=== PATIENT | female | born 1990 | race African-American/Black ===

== ENCOUNTER 2019-05-21 10:39 | Emergency (ER) | payer OTHER, SELFPAY ==
--- NOTE | ~2019-05-21 | XR_ITS ---
EXAMINATION: XR hand RT min 3V EXAM DATE: 05/21/2019 11:10 INDICATION: Initial encounter following injury, with pain of the right hand. TECHNIQUE: Right hand frontal, lateral and oblique projections obtained and reviewed. There is no pr ior study for comparison. FINDINGS: There is suspicion of acute nondisplaced fracture at the proximal aspect of the right fifth metacarpal shaft, slight cortical discontinuity suspected, but please clinically correlate. No other suspicious right hand findings. Phalanges are unremarkable. IMPRESSION: Suspicion of acute nondisplaced right metacarpal shaft fracture, proximally. Reviewed, dictated and finalized at location B. IMPRESSION: Suspicion of acute nondisplaced right metacarpal shaft fracture, p roximally.
[2019-05-21 10:54] VITALS: BP 142/81; PULSE 80; RESP 16; TEMP 36.9; O2SAT 100
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
== END 2019-05-21 11:50 | disposition home or self-care (01) ==
PROVIDERS: Emergency Provider Nurse Practitioner
DX: S62.356A Nondisplaced fracture of shaft of fifth metacarpal bone, right hand, initial encounter for closed fracture (principal); Y04.0XXA Assault by unarmed brawl or fight, initial encounter
CPT/HCPCS: 29125; 73130; 99214; G0463

== ENCOUNTER 2019-08-09 14:16 | Emergency (ER) | payer OTHER, SELFPAY ==
[2019-08-09 14:22] VITALS: BP 120/66; PULSE 72; RESP 20; TEMP 37.2; O2SAT 100
--- NOTE | 2019-08-09 14:45 | PC.NURSE ---
Patient assessed, for C/O heartburn and sensation, feeling like she has something stuck in her chest when she tries eating or drinking or swallowing. Patient stated she had emesis episodes this morning and last night. Denies abdominal pain, nausea, or diarrhea.
--- NOTE | 2019-08-09 15:57 | ED.GENADULT ---
HPI - General Adult General Chief complaint: Unspecified Stated complaint: heartburn Time Seen by Provider: 08/09/19 15:57 Source: patient Mode of arrival: ambulatory Limitations: no limitations History of Present Illness HPI narrative: Landy Blackman is a 28 yo female with no PMH who comes to express care with complaints of indigestion and burning in chest. Just started last night and has improved somewhat but continues to bother her. She is unable to identify precipitating event Related Data Allergies Allergy/AdvReac Type Severity Reaction Status Date / Time bupropion Allergy Rash Verified 08/09/19 15:07 Review of Systems Review of Systems: Narrative: CONSTITUTIONAL: Denies fever, chills, sweats. EYES: Denies visual changes, redness, discharge. ENT: Denies rhinorrhea, congestion, sore throat, otalgia. CARDIOVASCULAR: Denies chest pain, palpitations, edema. RESPIRATORY: Denies dyspnea, wheezing, cough GASTROINTESTINAL: Denies abdominal pain, nausea, vomiting, diarrhea. Has heartburn GENITOURINARY: Denies dysuria, hematuria, abnormal discharge SKIN: Denies rash or itching. NEUROLOGIC: Denies numbness, or focal weakness. PSYCHIATRIC: Denies anxiety or depression. PMFSH Family History Family History Other Hypertension Social History Social History Smoking status: Never smoker Alcohol intake: never Gender identity (if verbalized by the patient): Female Comments At time of signature, I agree with nursing past medical, surgical, social and family history. There is no relevant family history pertinent to the presenting complaint. Exam Narrative: Exam Narrative: GENERAL: This is a well-nourished, well-developed patient, in mild distress. HEAD: normocephalic, atraumatic. EYES: Sclera clear/white. Vision is grossly intact. EARS: External ears normal, . Hearing grossly intact. NOSE: External nose normal without nasal discharge, nares without redness, no rhinorrhea. THROAT: Mucous membranes moist, posterior pharynx mild erythema NECK: Neck supple, CARDIOVASCULAR: Regular rate and rhythm without murmurs, gallops, or rubs. RESPIRATORY: Clear to auscultation. Breath sounds equal bilaterally. No wheezes, rales, or rhonchi. GASTROINTESTINAL: Abdomen soft, SKIN: warm, intact with no suspicious lesions or rash, good texture and turgor. NEURO: awake, alert, and oriented to person, place and time. There were no obvious focal neurologic abnormalities. Steady gait EXTREMITIES: Normal range of motion. BACK: Nontender without deformity Course Course Emergency Course: Pepcid given at [facility] Started on Pepcid 20 mg twice daily for 15-day trial; and worsens patient told to go to ER Follow-up with PCP Vital Signs Vital signs: Vital Signs Temperature 98.9 F 08/09/19 14:22 Pulse Rate 72 08/09/19 14:22 Respiratory Rate 08/09/19 14:22 Blood Pressure 120/66 08/09/19 14:22 Pulse Oximetry 100 08/09/19 14:22 Temperature 98.9 F 08/09/19 14:22 Pulse Rate 72 08/09/19 14:22 Respiratory Rate 08/09/19 14:22 Blood Pressure 120/66 08/09/19 14:22 Pulse Oximetry 100 08/09/19 14:22 Medical Decision Making Differential Diagnosis Differential Diagnosis: Gastritis versus GERD versus nausea Vital Signs Vital Signs: Vital Signs Temperature 98.9 F 08/09/19 14:22 Pulse Rate 72 08/09/19 14:22 Respiratory Rate 08/09/19 14:22 Blood Pressure 120/66 08/09/19 14:22 Pulse Oximetry 100 08/09/19 14:22 Temperature 98.9 F 08/09/19 14:22 Pulse Rate 72 08/09/19 14:22 Respiratory Rate 08/09/19 14:22 Blood Pressure 120/66 08/09/19 14:22 Pulse Oximetry 100 08/09/19 14:22 Discharge Plan Discharge Clinical Impression: GERD (gastroesophageal reflux disease) Qualifiers: Esophagitis presence: esophagitis presence not specified Qualified
[2019-08-09] MEDS: FAMOTIDINE 20 MG TABLET PO (16:09)
== END 2019-08-09 16:37 | disposition home or self-care (01) ==
PROVIDERS: Emergency Provider Nurse Practitioner; PCP Nurse Practitioner Adult Health
DX: K21.9 Gastro-esophageal reflux disease without esophagitis (principal)
CPT/HCPCS: 99213; A9270; G0463

== ENCOUNTER 2019-10-15 18:27 | Emergency (ER) | payer OTHER, SELFPAY ==
[2019-10-15 18:33] VITALS: BP 115/70; PULSE 72; RESP 18; TEMP 36.8; O2SAT 100
--- NOTE | 2019-10-15 18:36 | ED.URI ---
HPI - URI/Sore Throat General Chief Complaint: Ear Stated Complaint: sinus headache and ear pain Time Seen by Provider: 10/15/19 18:36 Source: patient and RN notes reviewed History of Present Illness HPI Narrative: Patient is a 28-year-old female who presents the urgent care with complaints of bilateral ear pressure, sinus headache and nasal congestion. Patient states that she has been taking Claritin for approximately 3 weeks after she started with sneezing. Patient states that current symptoms have been ongoing for approximately 4 to 5 days and she has introduced Benadryl which seem to be helping her symptoms . Patient states that she called off work and they wanted to make sure that she was seen by a doctor before she returned . Patient denies of any fever, nausea, vomiting, cough. No other acute complaints. No acute distress noted. Patient read the plan of care. Related Data Allergies Allergy/AdvReac Type Severity Reaction Status Date / Time bupropion Allergy Rash Verified 10/15/19 18:41 Review of Systems Review of Systems: Narrative: CONSTITUTIONAL: Denies fever, chills, or sweats. EYES: Denies visual changes, redness, or discharge. ENT: Reports of bilateral otalgia, nasal congestion CARDIOVASCULAR: Denies chest pain, palpitations, or edema. RESPIRATORY: Denies cough or dyspnea. GASTROINTESTINAL: Denies abdominal pain, nausea, vomiting, or diarrhea. GENITOURINARY: Denies dysuria or hematuria. SKIN: Denies rash or itching. MUSCULOSKELETAL: Denies back pain, joint pain, or myalgia. NEUROLOGIC: Reports of sinus headache All other systems reviewed are negative, except as documented in HPI. PMFSH Social History Social History Smoking status: Never smoker Alcohol intake: never Gender identity (if verbalized by the patient): Female Comments At the time of my signature, I reviewed and agree with the nursing past medical, surgical, social, and family history. There is no relevant family history pertinent to the patient complaint. Exam Narrative: Exam Narrative: GENERAL: This is a well-nourished, well-developed patient, in no apparent distress. HEAD: normocephalic, atraumatic. EYES: PERRL. Sclera clear/white. Vision is grossly intact. EARS: External ears normal, auditory canals clear and without drainage, mild fluid behind bilateral TMs without otitis, TMs normal without perforation. Hearing grossly intact. NOSE: External nose normal with no obvious nasal discharge, nares without redness, no rhinorrhea. THROAT: Mucous membranes moist, moderate postnasal drainage NECK: Neck supple CARDIOVASCULAR: Regular rate and rhythm without murmurs, gallops, or rubs. RESPIRATORY: Clear to auscultation. Breath sounds equal bilaterally. No wheezes, rales, or rhonchi. SKIN: warm, intact with no suspicious lesions or rash, good texture and turgor. NEURO: awake, alert, and oriented to person, place and time. There were no obvious focal neurologic abnormalities. EXTREMITIES: No clubbing, cyanosis, or edema. Course Vital Signs Vital signs: Vital Signs Temperature 98.2 F 10/15/19 18:33 Pulse Rate 72 10/15/19 18:33 Respiratory Rate 18 10/15/19 18:33 Blood Pressure 115/70 10/15/19 18:33 Pulse Oximetry 100 10/15/19 18:33 Temperature 98.2 F 10/15/19 18:33 Pulse Rate 72 10/15/19 18:33 Respiratory Rate 18 10/15/19 18:33 Blood Pressure 115/70 10/15/19 18:33 Pulse Oximetry 100 10/15/19 18:33 Reviewed MDM - URI/Sore Throat MDM Narrative Medical decision making narrative: Advised the patient continue the use of Claritin during the day and Benadryl as needed at night. Use Flonase nasal spray daily as directed. Sleep with humidifier and do not sleep with the windows open. Increase fluids and rest. Use [id number] Tylenol/ibuprofen as needed for headache. If you develop any increase in symptoms associated productive cough, fever, shortness of jasmeet
== END 2019-10-15 18:53 | disposition home or self-care (01) ==
PROVIDERS: Emergency Provider Nurse Practitioner Family
DX: J32.9 Chronic sinusitis, unspecified (principal)
CPT/HCPCS: 99213; G0463

== ENCOUNTER 2020-01-06 18:21 | Emergency (ER) | payer OTHER, SELFPAY ==
[2020-01-06 18:25] VITALS: BP 124/71; PULSE 69; RESP 18; TEMP 37.1; O2SAT 100
[2020-01-06 18:56] VITALS: BP 124/71; PULSE 69; RESP 18; TEMP 37.1; O2SAT 100
--- NOTE | 2020-01-06 19:06 | ED.NAVMDI ---
HPI - Nausea/Vomiting/Diarrhea General Chief complaint: Nausea/Vomiting/Diarrhea Stated complaint: nausea/vomiting/Diarrhea Time Seen by Provider: 01/06/20 19:06 Source: patient and RN notes reviewed Mode of arrival: ambulatory Limitations: no limitations History of Present Illness HPI Narrative: 29-year-old female presents with concern for nausea, vomiting, diarrhea, chills. Reports symptoms started this morning. She also reports rhinorrhea and cough that started approximately 3 days ago. She denies fever, shortness of breath, body aches,, sore throat. Denies any intervention. Reports 2 episodes of vomiting today, 2 episodes of diarrhea today. Reports she has been sipping on water and been able to keep that down, has not kept any food down. MD elicited complaint: vomiting Related Data Allergies Allergy/AdvReac Type Severity Reaction Status Date / Time No Known Allergies Allergy Verified 01/06/20 18:56 Review of Systems Review of Systems: Narrative: CONSTITUTIONAL: Reports malaise, chills. Denies sweats, or fever. EYES: Denies visual changes, redness, or discharge. ENT: Reports rhinorrhea. Denies congestion, sinus pain, otalgia or sore throat. CARDIOVASCULAR: Denies chest pain, palpitations, or edema. RESPIRATORY: Reports cough. Denies dyspnea. GASTROINTESTINAL: Denies abdominal pain, bloody, or mucous stools. Reports nausea, vomiting, diarrhea, GENITOURINARY: Denies dysuria or hematuria. SKIN: Denies rash or itching. MUSCULOSKELETAL: Denies back pain, joint pain, or myalgia. NEUROLOGIC: Denies numbness, weakness, or headache. PSYCHIATRIC: Denies anxiety or depression. All systems reviewed & are unremarkable except as noted in HPI and below PMFSH Family History Family History Other Hypertension Social History Social History Smoking status: Never smoker Alcohol intake: never Gender identity (if verbalized by the patient): Female Comments At time of signature, agree with nursing past medical, surgical, social and family history. There is no relevant family history pertinent to the presenting complaint Exam Narrative: Exam Narrative: GENERAL: Well-appearing, well-nourished, and in no acute distress. HEAD: Normocephalic, atraumatic. EYES: PERRLA, conjunctivae clear, and EOMI. ENT: Nares clear, turbinates pink, clear rhinorrhea, epistaxis. Mucous membranes moist. Oropharynx without edema, erythema, or lesions. Tonsils not enlarged and without exudate. NECK: Supple. No lymphadenopathy CHEST: Speaks in full sentences. No respiratory distress. HEART: Regular rate and rhythm. ABDOMEN: Soft, flat, nondistended. No guarding, rebound tenderness, or rigid. No pulsatilla masses. Bowel sounds present in all four quadrants. No organomegaly. Negative Strange?s sign. No periumbilical tenderness. No Supra public tenderness or distension. Good femoral pulses bilaterally. No hernia noted. No scars or surface trauma. SKIN: Warm, dry, no rash. NEURO: Alert and oriented x3. PSYCH: Normal mood and affect Course Course Emergency Course: Patient is aware of diagnosis, understands and agrees to treatment plan. Anticipatory guidance given. Patient agrees to follow-up as directed and is aware of reasons to seek care at the emergency department. Portions of this record may have been created with voice recognition software Vital Signs Vital signs: Vital Signs Temperature 98.7 F 01/06/20 18:25 Pulse Rate 69 01/06/20 18:25 Respiratory Rate 18 01/06/20 18:25 Blood Pressure 124/71 01/06/20 18:25 Pulse Oximetry 100 01/06/20 18:25 Temperature 98.7 F 01/06/20 18:56 Pulse Rate 69 01/06/20 18:56 Respiratory Rate 18 01/06/20 18:56 Blood Pressure 124/71 01/06/20 18:56 Pulse Oximetry 100 01/06/20 18:56 Reviewed. MDM - Nausea/Vomiting/Diarrhea MDM Narrative Medical decision making narrative
== END 2020-01-06 19:21 | disposition home or self-care (01) ==
PROVIDERS: Emergency Provider Nurse Practitioner; PCP Nurse Practitioner Adult Health
DX: R11.2 Nausea with vomiting, unspecified (principal); R19.7 Diarrhea, unspecified; Z20.828 Contact with and (suspected) exposure to other viral communicable diseases
CPT/HCPCS: 99213; G0463

== ENCOUNTER 2020-01-12 07:02 | Outpatient (NON) | payer OTHER, SELFPAY ==
[2020-01-13 01:01] LABS: SARS-CoV-2 RNA PCR Negative
== END 2020-01-12 07:03 ==
PROVIDERS: PCP Nurse Practitioner Adult Health; Visit Provider Nurse Practitioner
DX: R11.2 Nausea with vomiting, unspecified (principal); Z20.828 Contact with and (suspected) exposure to other viral communicable diseases
CPT/HCPCS: 87635; C9803; U0003